=== PATIENT | male | born 1990 | race Caucasian/White ===

== ENCOUNTER 2017-03-07 18:03 | Emergency (ER) | payer MEDICAID ==
[~2017-03-07] VITALS: Ht 166.4 cm; Wt 2.2 kg
[~2017-03-07 18:03] MED LIST: ACCUPRIL5 MG; ANUSOL HC25 MG RE; AUGMENTIN500 MG OR; CEPHALEXIN500 MG PO; DOXYCYCL HYC100 MG PO; LORTAB 10-325 M1 TAB PO; LORTAB 5 OR; NAPROSYN500 MG OR; NAPROSYN500 MG PO; NO MEDS; PREDNISONE20 MG PO; PROVENTIL IN; SINGULAIR PO
[2017-03-07] MEDS ORDERED: NAPROSYN500 MG PO (20:23)
[2017-03-07 20:31] VITALS: BP 149/70
== END 2017-03-07 20:35 | disposition home or self-care (01) | DRG 605 ==
LOC: ED 18:03
PROC: 0HQ1XZZ Repair Face Skin, External Approach (ICD-10-PCS; principal; 2017-03-07)
DX: S00.83XA Contusion of other part of head, initial encounter (principal); S01.81XA Laceration without foreign body of other part of head, initial encounter; Y04.0XXA Assault by unarmed brawl or fight, initial encounter; Y92.009 Unspecified place in unspecified non-institutional (private) residence as the place of occurrence of the external cause

== ENCOUNTER 2017-06-11 16:03 | Emergency (ER) | payer OTHER ==
[~2017-06-11] VITALS: Ht 166.4 cm; Wt 60.0 kg
[2017-06-11] MEDS ORDERED: NAPROSYN500 MG PO (16:56)
[2017-06-11] MEDS ORDERED: PENICILLN VK500 MG PO (16:56)
[2017-06-11 17:00] VITALS: BP 128/78
[2017-06-11] MEDS ORDERED: VENTOLIN HFA IN (17:09)
== END 2017-06-11 17:00 | disposition home or self-care (01) | DRG 159 ==
LOC: ED 16:03
DX: K02.9 Dental caries, unspecified (principal); F17.210 Nicotine dependence, cigarettes, uncomplicated

== ENCOUNTER 2017-09-24 16:08 | Emergency (ER) | payer MEDICAID ==
[~2017-09-24] VITALS: Ht 166.4 cm; Wt 62.0 kg
[~2017-09-24 16:08] MED LIST changes: +PENICILLN VK500 MG PO; +VENTOLIN HFA IN
[2017-09-24 16:13] VITALS: BP 115/76
[2017-09-24] MEDS ORDERED: 12HOUR DECONGE120 MG PO (16:29)
[2017-09-24] MEDS ORDERED: ZPAK PO (16:29)
== END 2017-09-24 16:46 | disposition home or self-care (01) | DRG 153 ==
LOC: ED 16:08
DX: J06.9 Acute upper respiratory infection, unspecified (principal); H92.01 Otalgia, right ear; R05 Cough; R09.81 Nasal congestion

== ENCOUNTER 2017-11-28 16:59 | Emergency (ER) | payer MEDICAID ==
[~2017-11-28] VITALS: Ht 166.4 cm; Wt 60.0 kg
[~2017-11-28 16:59] MED LIST changes: +12HOUR DECONGE120 MG PO; +ZPAK PO
[2017-11-28 17:53] LABS: INFLUENZA A NONE DETECTED (NONE DETECT); INFLUENZA B NONE DETECTED (NONE DETECT)
[2017-11-28] MEDS ORDERED: TAM75CAP PO (17:55)
[2017-11-28 17:57] VITALS: BP 116/73
== END 2017-11-28 17:59 | disposition home or self-care (01) | DRG 153 ==
LOC: ED 16:59
PROVIDERS: Family Medicine
DX: J11.1 Influenza due to unidentified influenza virus with other respiratory manifestations (principal); F17.210 Nicotine dependence, cigarettes, uncomplicated; R50.9 Fever, unspecified; J02.9 Acute pharyngitis, unspecified; R05 Cough; R52 Pain, unspecified

== ENCOUNTER 2017-12-19 20:52 | Emergency (ER) | payer MEDICAID ==
[~2017-12-19] VITALS: Ht 166.4 cm; Wt 60.4 kg
[~2017-12-19 20:52] MED LIST changes: +TAM75CAP PO
[2017-12-19 21:48] VITALS: BP 118/73
== END 2017-12-19 21:56 | disposition home or self-care (01) | DRG 605 ==
LOC: ED 20:52
PROC: 0HQGXZZ Repair Left Hand Skin, External Approach (ICD-10-PCS; principal; 2017-12-19)
DX: S61.412A Laceration without foreign body of left hand, initial encounter (principal); W25.XXXA Contact with sharp glass, initial encounter; Y93.89 Activity, other specified; Y92.009 Unspecified place in unspecified non-institutional (private) residence as the place of occurrence of the external cause

== ENCOUNTER 2018-03-31 18:54 | Emergency (ER) | payer SELFPAY ==
[~2018-03-31] VITALS: Ht 166.4 cm; Wt 64.6 kg
[2018-03-31 19:37] LABS: HEMOGLOBIN 15.4 g/dl (14.0-18.0); IMMATURE GRANULOCYTES 0.2 % (0.0-1.0); MEAN CELL VOLUME 86.5 fL CALC (80.0-100.0); MEAN CORPUSCULAR HGB 29.6 pG CALC (26.0-32.0); MEAN CORPUSCULAR HGB CONC 34.2 g/L CALC (32.0-36.0); NEUT# 6.86 thou/uL (1.82-7.42); RED BLOOD COUNT 5.2 mill/uL (4.70-6.10); RED CELL DISTRI WIDTH 13.4 % (11.5-15.5)
[2018-03-31 19:38] LABS: URINE BILIRUBIN - DIPSTICK NEGATIVE (NEGATIVE); URINE BLOOD DIPSTICK LARGE (NEGATIVE); URINE COLOR YELLOW; URINE GLUCOSE - DIPSTICK NEGATIVE (NEGATIVE); URINE KETONE NEGATIVE (NEGATIVE); URINE LEUK ESTERASE NEGATIVE (NEGATIVE); URINE NITRITE - DIPSTICK NEGATIVE (Negative); URINE PH 5.5 (4.5-8.0); URINE PROTEIN - DIPSTICK NEGATIVE (NEG-TRACE); URINE SPECIFIC GRAVITY >=1.030
[2018-03-31 19:56] LABS: ALBUMIN 3.7 g/dL (3.2-5.0); ALKALINE PHOSPHATASE 67 u/l (38-126); ANION GAP 11 (6-22 (CALC)); BILIRUBIN, TOTAL 0.4 mg/dL (0.0-1.4); BUN 20 mg/dL (9-20); BUN/CREATININE RATIO 17 (12-20 (CALC)); CARBON DIOXIDE 25 mmol/l (22-30); CHLORIDE 107 mmol/l (95-108); CREATININE 1.2 mg/dL (0.7-1.3); GFR > 60 ML/MIN (>=60 (CALC)); GFR FOR AFR.AMER. > 60 ML/MIN (>=60 (CALC)); POTASSIUM 3.9 mmol/l (3.5-5.1); SGOT/AST 23 u/l (17-59); SGPT/ALT 27 u/l (21-72); SODIUM 140 mmol/l (137-146); TOTAL PROTEIN 6.5 g/dL (6.3-8.2)
[2018-03-31 20:07] LABS: URINE CLARITY CLEAR
[2018-03-31 20:28] LABS: URINE RBC TNTC RBC/hpf (0-5); URINE SQUAMOUS EPITHELIAL CELL FEW EPI/hpf (0-FEW)
[2018-03-31] MEDS ORDERED: LORTAB 5/3255 MG PO (21:48)
[2018-03-31] MEDS ORDERED: TAMSULOSIN0.4 MG PO (21:48)
[2018-03-31 22:14] VITALS: BP 133/99
== END 2018-03-31 22:15 | disposition home or self-care (01) | DRG 694 ==
LOC: ED 18:54
PROVIDERS: Family Medicine
DX: N13.2 Hydronephrosis with renal and ureteral calculous obstruction (principal); F17.210 Nicotine dependence, cigarettes, uncomplicated; J45.909 Unspecified asthma, uncomplicated; Z87.442 Personal history of urinary calculi

== ENCOUNTER 2018-09-27 08:00 | Emergency (ER) | payer MEDICAID ==
[~2018-09-27] VITALS: Ht 166.4 cm; Wt 135.0 kg
[~2018-09-27 08:00] MED LIST changes: +LORTAB 5/3255 MG PO; +TAMSULOSIN0.4 MG PO
[2018-09-27] MEDS ORDERED: VENTOLIN HFA IN (08:43)
[2018-09-27] MEDS ORDERED: ACCUPRIL5 MG PO (08:44)
[2018-09-27] MEDS ORDERED: TAM75CAP PO (09:32)
[2018-09-27] MEDS ORDERED: AMOXICILLIN500 M2 PO (09:32)
[2018-09-27 09:50] VITALS: BP 129/87
== END 2018-09-27 09:50 | disposition home or self-care (01) ==
LOC: ED 08:00
DX: J02.0 Streptococcal pharyngitis (principal); R11.0 Nausea; R09.81 Nasal congestion; F17.200 Nicotine dependence, unspecified, uncomplicated; R53.81 Other malaise

== ENCOUNTER 2019-07-28 10:39 | Emergency (ER) | payer MEDICAID ==
[~2019-07-28] VITALS: Ht 166.4 cm; Wt 80.0 kg
[~2019-07-28 10:39] MED LIST changes: +ACCUPRIL5 MG PO; +AMOXICILLIN500 M2 PO
[2019-07-28] MEDS ORDERED: PENICILLN VK500 MG PO (11:44)
[2019-07-28 11:50] VITALS: BP 127/51
== END 2019-07-28 11:50 | disposition home or self-care (01) ==
LOC: ED 10:39
DX: K04.7 Periapical abscess without sinus (principal); K01.1 Impacted teeth